=== PATIENT | female | born 1985 | race Caucasian/White ===

== ENCOUNTER 2020-08-21 14:36 | Emergency (ER) | payer OTHER, SELFPAY ==
[2020-08-21 14:47] VITALS: BP 104/72; PULSE 84; RESP 18; TEMP 36.2; O2SAT 95
--- NOTE | 2020-08-21 17:05 | DI.CT.S_ITS ---
PROCEDURE: CT HEAD/BRAIN WO CON INDICATIONS: head injury 4 days ago w loc, r side facial pain/swelling TECHNIQUE: Noncontrast 4.5 mm thick angled axial sections acquired from the foramen magnum to the vertex, with coronal and sagittal reformats. For radiation dose reduction, the following was used: automated exposure control, adjustment of mA and/or kV according to patient size. COMPARISON: None. FINDINGS: Image quality: Excellent. CSF spaces: Basal cisterns are patent. No extra-axial fluid collections. Ventricles are normal in size and shape. Brain: No midline shift. No intracranial masses or hemorrhage. Vega-white matter interface is normal. Skull and face: Calvarium and visualized facial bones are intact, without suspicious lesions. Sinuses: Visualized sinuses and mastoids are clear. IMPRESSION: No CT evidence of acute intracranial pathology. No acute skull fracture. Dictated by: Baljit Scanlon M.D. on 08/21/2020 at 16:37 Approved by: Baljit Scanlon M.D. on 08/21/2020 at 16:37
--- NOTE | 2020-08-21 17:05 | DI.CT.S_ITS ---
PROCEDURE: CT FACIAL BONES WO CON INDICATIONS: right side face pain, head injury 4 days ago TECHNIQUE: Noncontrast 2.5 mm thick axial images acquired from the mandible through the frontal sinuses, with coronal and sagittal reformatting. For radiation dose reduction, the following was used: automated exposure control, adjustment of mA and/or kV according to patient size. COMPARISON: [facility], CT, CT HEAD/BRAIN WO CON, 08/21/2020, 17:08. FINDINGS: Image quality: Excellent. Bones and teeth: Orbital paiz are intact. Sinus paiz show no fracture or deformity. Nasal bones and septum are intact. There is minimal chronic leftward nasal septal deviation. Visualized portions of the mandible demonstrate no fractures or subluxation. Zygomatic arches are intact. Pterygoid plates are intact. Visualized portions of the skull base and auditory canals are intact. Sinuses: Mucous retention cysts are seen within the inferior left maxillary sinus. There is minimal mucosal thickening within the posterior left sphenoid sinus. Paranasal sinuses are otherwise well aerated, without fluid levels, mucosal thickening, or mucoceles. Mastoid air cells are aerated. Soft tissues: No edema, masses, or fluid collections. No enlarged lymph nodes. No soft tissue lacerations or debris. Vascular: Visualized vascular structures appear normal in the absence of contrast. Bony vascular foramina and canals are intact. IMPRESSION: Negative for displaced facial bone fracture. Dictated by: Robert Gregory M.D. on 08/21/2020 at 16:39 Approved by: Robert Gregory M.D. on 08/21/2020 at 16:41
[2020-08-21] MEDS: ACETAMINOPHEN 325 MG TABLET 650 MG PO (17:47)
--- NOTE | 2020-08-21 17:50 | PC.NURSE ---
pain in right side of face, with some associated facial numbness and blurry vision.
--- NOTE | 2020-08-21 18:00 | ED.FALL ---
HPI - Fall <SD CastanedaP - Last Filed: 08/21/20 22:34> General Chief Complaint: Fall Stated Complaint: slipped, hit head, R side face pain Time Seen by Provider: 08/21/20 16:36 Source: patient Mode of arrival: Ambulatory Limitations: no limitations History of Present Illness HPI Narrative: This is a 35-year-old female, occasional smoker, with past medical history significant for anxiety, depression, insomnia presents to ED with chief complain of right-sided face pain including forehead and periorbital region with swelling after she accidentally slipped on linoleum floor with some slippery socks on 5 days ago had a few seconds of loss of consciousness witnessed by her . Patient reports some headache, slight blood vision with resolved nausea and 1 episode of vomiting on the same day she had injured her head. She denies decrease sensation or weakness on upper extremities, mid cervical tenderness, or seizure activities after the fall. Patient denies chest pain, breathing difficulty, or dizziness prior to the fall. Patient had taken ibuprofen last dose yesterday with some improvement in her discomfort and had used cool pack on her face. Patient reports pain increases with chewing, by palpation and she has been eating soft food since the injury. Denies misalignment of teeth when biting down. LMP 07/25/2020. Related Data Home Medications Medication Instructions Recorded Confirmed trazodone 08/21/20 venlafaxine mg 08/21/20 Allergies Allergy/AdvReac Type Severity Reaction Status Date / Time No Known Drug Allergies Allergy Verified 08/21/20 17:56 Review of Systems <Sage Sheldon [facility] - Last Filed: 08/21/20 22:34> Review of Systems Narrative: General: Denies fever, chills, fatigue, malaise, sweats. HEENT: Denies sinus pain, ear pain, sore throat, difficulty swallowing, dizziness. Respiratory: Denies dyspnea, cough, wheezing, hemoptysis, sputum. Cardiovascular: Denies chest pain, palpitations, orthopnea, edema. Gastrointestinal: HPI : Denies dysuria, frequency, incontinence, hematuria, urinary retention. Musculoskeletal: Denies weakness, joint pain or bony pain. Skin: (+) swelling to right forehead, cheeck and tender to palpate. Neurologic: See HPI Psychiatric: No concerning psychosocial issues. 12-point review of systems is negative except for those stated above. Patient History <LOR Castaneda - Last Filed: 08/21/20 22:34> Medical History Anxiety (Acute) Depression (Acute) Insomnia (Acute) Surgical History No pertinent past surgical history (Acute) Social History Smoking Status: Current some day smoker substance use type: marijuana Exam <LOR Castaneda - Last Filed: 08/21/20 22:34> Narrative Exam Narrative: General appearance: well developed, well nourished, in no acute distress. Head: normocephalic, atraumatic, no scalp lesions, non-tender. ENT: Bilateral auditory canals and tympanic membranes clear without drainage or [place] sign. Hearing grossly intact. Nose without bleeding, purulent discharge, septal hematoma or deviation. Turbinate without erythema or swelling. Facial sinuses nontender to palpate. Mild swelling and bruise on the right forehead. Right-sided cheek and periorbital region with mild swelling and tender to palpate. Mucous membrane moist, no mucosal lesion. Throat without erythema, tonsillar hypertrophy or exudate. Uvula in midline, airway patent. Neck/Thyroid: neck supple, full range of motion, no visible masses or meningeal signs. No JVD, non-tender, no step-offs without lymphadenopathy. Skin: See ENT exam. Warm and dry and appropriate color for ethnicity. Heart: no clubbing, no cyanosis, no edema. S1 and S2 normal. RRR w/o murmurs, clicks, or bruits. Lungs: Breathing even and unlabored. No stridor. No accessory muscles used. Able to speak in full sentences. Chest: normal shape and expansion. Abdomen: non-obese, non-distended. EXT: Full range of motion with bilateral equal strength in upper extremity with intact sensations. Neurologic: alert and oriented. Cognitive exam, MATERIAL LIAISON and PNS grossly intact on informal exam. Psych: good eye contact, normal affect. Initial Vital Signs Initial Vital Signs: Vital Signs Temperature 97.2 F L 08/21/20 14:47 Pulse Rate 84 08/21/20 14:47 Respiratory Rate 18 08/21/20 14:47 Blood Pressure 104/72 08/21/20 14:47 Pulse Oximetry 95 08/21/20 14:47 <Celeste Corral DO - Last Filed: 08/22/20 09:25> Initial Vital Signs Initial Vital Signs: Vital Signs Temperature 97.2 F L 08/21/20 14:47 Pulse Rate 84 08/21/20 14:47 Respiratory Rate 18 08/21/20 14:47 Blood Pressure 104/72 08/21/20 14:47 Pulse Oximetry 95 08/21/20 14:47 Scores <SD CastanedaP - Last Filed: 08/21/20 22:34> GCS Yan coma scale eye opening: Spontaneous Yan coma scale verbal response: Orientated Yan coma scale motor response: Obey commands Yan coma scale total score: 15 Nexus Score for C-Spine Focal Neurologic deficit present: No Midline spinal tenderness present: No Altered level of conciousness present: No Intoxication present: No Distracting Injury Present: No Nexus Criteria for C-spine: 0 Course <SD CastanedaP - Last Filed: 08/21/20 22:34> Orders Ordered: Discontinued Medications Acetaminophen (Tylenol) 650 mg PO NOW ONE Stop: 08/21/20 17:23 Last Admin: 08/21/20 17:47 Dose: 650 mg Documented by: DENEEN Vital Signs Vital signs: Vital Signs - 8 hr 08/21/20 14:47 Temperature 97.2 F L Pulse Rate 84 Respiratory Rate 18 Blood Pressure 104/72 Pulse Oximetry 95 <Celeste Corral DO - Last Filed: 08/22/20 09:25> Orders Ordered: Discontinued Medications Acetaminophen (Tylenol) 650 mg PO NOW ONE Stop: 08/21/20 17:23 Last Admin: 08/21/20 17:47 Dose: 650 mg Documented by: RYLANDUDSON Vital Signs Vital signs: Vital Signs - 8 hr 08/21/20 14:47 Temperature 97.2 F L Pulse Rate 84 Respiratory Rate 18 Blood Pressure 104/72 Pulse Oximetry 95 MDM - Fall <Sage SD SheldonP - Last Filed: 08/21/20 22:34> Differential Diagnosis Differential diagnosis: Likely other (Facial fracture, facial contusion, concussion, closed head injury, intracranial bleed) Medical Records Attestation: I reviewed the patient's medical records. Imaging Data CT scan - head: Radiologist's Impression: [address] [address] [address] Scan Report Signed Patient: See Benitez#: [id number] : 1985Acct:[id number] Age/Sex: 35 / FDate of Service: 08/21/20 Loc: ED Accession Number: [id number] Procedure: CT head/brain wo con Ordering Provider: Sage Sheldon [facility] PROCEDURE: CT HEAD/BRAIN WO CON INDICATIONS: head injury 4 days ago w loc, r side facial pain/swelling TECHNIQUE: Noncontrast 4.5 mm thick angled axial sections acquired from the foramen magnum to the vertex, with coronal and sagittal reformats. For radiation dose reduction, the following was used: automated exposure control, adjustment of mA and/or kV according to patient size. COMPARISON: None. FINDINGS: Image quality: Excellent. CSF spaces: Basal cisterns are patent. No extra-axial fluid collections. Ventricles are normal in size and shape. Brain: No midline shift. No intracranial masses or hemorrhage. Vega-white matter interface is normal. Skull and face: Calvarium and visualized facial bones are intact, without suspicious lesions. Sinuses: Visualized sinuses and mastoids are clear. IMPRESSION: No CT evidence of acute intracranial pathology. No acute skull fracture. Dictated by: Baljit Scanlon M.D. on 08/21/2020 at 16:37 Approved by: Baljit Scanlon M.D. on 08/21/2020 at 16:37 CT- Facial: Radiologist's Impression: [address] [address] [address] Scan Report Signed Patient: See Benitez#: [id number] : 1985Acct:[id number] Age/Sex: 35 / FDate of Service: 08/21/20 Loc: ED Accession Number: [id number] Procedure: CT facial bones wo con Ordering Provider: Sage Sheldon [facility] PROCEDURE: CT FACIAL BONES WO CON INDICATIONS: right side face pain, head injury 4 days ago TECHNIQUE: Noncontrast 2.5 mm thick axial images acquired from the mandible through the frontal sinuses, with coronal and sagittal reformatting. For radiation dose reduction, the following was used: automated exposure control, adjustment of mA and/or kV according to patient size. COMPARISON: [facility], CT, CT HEAD/BRAIN WO CON, 08/21/2020, 17:08. FINDINGS: Image quality: Excellent. Bones and teeth: Orbital paiz are intact. Sinus paiz show no fracture or deformity. Nasal bones and septum are intact. There is minimal chronic leftward nasal septal deviation. Visualized portions of the mandible demonstrate no fractures or subluxation. Zygomatic arches are intact. Pterygoid plates are intact. Visualized portions of the skull base and auditory canals are intact. Sinuses: Mucous retention cysts are seen within the inferior left maxillary sinus. There is minimal mucosal thickening within the posterior left sphenoid sinus. Paranasal sinuses are otherwise well aerated, without fluid levels, mucosal thickening, or mucoceles. Mastoid air cells are aerated. Soft tissues: No edema, masses, or fluid collections. No enlarged lymph nodes. No soft tissue lacerations or debris. Vascular: Visualized vascular structures appear normal in the absence of contrast. Bony vascular foramina and canals are intact. IMPRESSION: Negative for displaced facial bone fracture. Dictated by: Robert Gregory M.D. on 08/21/2020 at 16:39 Approved by: Robert Gregory M.D. on 08/21/2020 at 16:41 MDM Narrative Medical decision making narrative: This is a 35-year-old female who presents to ED after she accidentally fell and hit right side of face 5 days ago with brief period of loss of consciousness reporting right-sided facial pain. Patient is neurological intact. No mid cervical tenderness to palpate and intact neurologically in bilateral upper extremities. No difficulty with flex and rotation of cervical spine. Given patient had loss of consciousness with read usual headache, slight blurred vision, resolved nausea and vomiting after the injury, CT of head was ordered and obtained along facial CT. Head and face CT results are negative for acute findings including facial fractures or evidence of acute intracranial pathology, skull fractures. Patient was medicated with Tylenol for headache. Return precautions were discussed with patient and she verbalized understanding and agreement with the treatment plan. Discharge Plan Departure Patient Disposition: Home Clinical Impression: Closed head injury Qualifiers: Encounter type: initial encounter Qualified Code(s): S09.90XA - Unspecified injury of head, initial encounter Contusion of face Qualifiers: Encounter type: initial encounter Qualified Code(s): S00.83XA - Contusion of other part of head, initial encounter Discharge Date/Time: 08/21/20 18:07 Instructions: DI for Contusion, DI for Closed Head Injury Activity Restrictions/Additional Instructions: You have been diagnosed with [closed head injury and right-sided face sure contusion from a fall [address] and facial CT does not show acute findings such as bleed, mass, fractures.]. What to do: *Take your medications as directed. You can use [id number] Tylenol and or Motrin as needed for discomfort. Tylenol 650-1000 mg as needed for pain up to 3 to 4 times a day. Ibuprofen 400-600 mg up to 3 to 4 times a day as needed for pain with food to decrease inflammation. You can continue to use cool pack affected face if there is swelling. You can use 20-30 minutes at a time up to several times a day. *Follow up with your primary care provider in 2-3 days, call for an appointment. Let them know you were seen in the ED and that we asked you to be seen in follow up. *Return to ED if you have any new, worsening, or concerning symptoms, such as [worsening pain, chest pain, breathing difficulty, unable to tolerate fluids, fever, or any acute concerns]. Prescriptions: No Action venlafaxine 75 mg tablet RF: 0 trazodone 100 mg tablet RF: 0 Referrals: [facility] [Outside] <Celeste Corral DO - Last Filed: 08/22/20 09:25> Cosign ED Attending Cosignature Attestation: I was immediately available in the department for consultation. This documentation has been reviewed. Supervised by Celeste Corral DO
== END 2020-08-21 18:07 | disposition home or self-care (01) ==
PROVIDERS: Emergency Provider Nurse Practitioner Family
DX: S06.9X1A Unspecified intracranial injury with loss of consciousness of 30 minutes or less, initial encounter (principal); S00.83XA Contusion of other part of head, initial encounter; W19.XXXA Unspecified fall, initial encounter
CPT/HCPCS: 70450; 70486; 99283; 99284